=== PATIENT | female | born 2000 | race Asian ===

== ENCOUNTER 2022-08-11 20:20 | Emergency (ER) | payer OTHER ==
[2022-08-11] MEDS ORDERED: Ibuprofen 200 MG TAB ONE (23:37)
== END 2022-08-12 00:50 | disposition home or self-care (01) ==
LOC: CSHERS 20:20
DX: J06.9 Acute upper respiratory infection, unspecified (principal); Z20.822 Contact with and (suspected) exposure to COVID-19
CPT/HCPCS: 87081; 87430; 87804; 99284; U0003; U0005